=== PATIENT | female | born 1955 | race Caucasian/White ===

== ENCOUNTER 2017-01-21 16:16 | Inpatient (IN) | payer BC ==
[2017-01-14 21:45] LABS: BASOPHILS 0.4 %; BASOPHILS ABSOLUTE 0.03 10/3/uL (0.0-0.16); EOSINOPHILS ABSOLUTE 0.07 10/3/uL (0.0-0.53); IMMATURE GRANULOCYTES 0.7 %; IMMATURE GRANULOCYTES ABSOLUTE 0.05 10/3/uL (0.0-0.11); LYMPHOCYTES 19.5 %; LYMPHOCYTES ABSOLUTE 1.32 10/3/uL (0.67-4.30); MEAN CORPUS HGB CONC 31.5 g/dL (32.0-36.0); MEAN CORPUSCULAR HEMOGLOB 28.9 pg (26.0-34.0); MONOCYTES ABSOLUTE 0.47 10/3/uL (0.21-1.20); NEUTROPHILS 71.4 %; NEUTROPHILS ABSOLUTE 4.82 10/3/uL (2.02-8.40); PLATELET COUNT 255 10/3/uL (150-400); RBC DISTRIBUTION WIDTH 15.4 % (12.0-16.0)
[2017-01-14 21:47] LABS: HEMATOCRIT 43.2 % (36.0-48.0); HEMOGLOBIN 13.6 g/dL (12.0-16.0); MANUAL DIFF NO %; MEAN CORPUSCULAR VOLUME 91.9 fL (80-100); WHITE BLOOD CELLS 6.8 10/3/uL (4.5-10.5)
[2017-01-14 21:53] LABS: INTERNATIONAL NORMAL RATI 1.1 UNITS (-); PROTIME (NOT ORD) 14.4 SEC (12.0-14.5)
[2017-01-14 21:59] LABS: ALKALINE PHOSPHATASE 198 U/L (45-117); BUN (BLOOD UREA NITROGEN) 13 MG/DL (6-23); CHLORIDE, SERUM 101 MMOL/L (96-112); CO2 (CARBON DIOXIDE) 30 MMOL/L (24-34); CREATININE 0.98 MG/DL (0.55-1.02); GFR AFRICAN AMERICAN 72 ML/MIN (>=60); GFR NON AFRICAN AMERICAN 62 ML/MIN (>=60); GLUCOSE, SERUM 173 MG/DL (60-99); SGOT(AST) 44 U/L (5-40); SGPT(ALT) 31 U/L (5-65); SODIUM, SERUM 140 MMOL/L (135-148); TOTAL BILIRUBIN 0.4 MG/DL (0-1.2); TOTAL PROTEIN 7.9 G/DL (6.0-8.5)
[2017-01-14 22:00] LABS: ASCORBIC ACID (UR NOT ORDER) NEG (NEG); BILIRUBIN, URINE NEGATIVE (NEG); KETONE, URINE NEGATIVE (NEG)
[2017-01-14 22:01] LABS: ALBUMIN 3.9 G/DL (3.5-5.0); POTASSIUM, SERUM 5.6 MMOL/L (3.5-5.3)
--- NOTE | ~2017-01-21 | OP ---
Record Of Operation [facility] [address] [place]. [address] NAME: PARIS SINGH : 55 STATUS : ADM IN PAT#: [id number] AGE: 61 ADM/REG DATE : 01/21/17 MR#: [id number] REPORT SERV DATE: 01/26/17 DICTATED BY: MARCOS MCCARTHY DATE: 01/22/17 REPORT STATUS : Draft TRANSCRIBED BY: MODL DATE: 01/22/17 DATE OF PROCEDURE: 01/21/2017 PREOPERATIVE DIAGNOSIS: Left hip status post resection, extensive. POSTOPERATIVE DIAGNOSIS: Left hip status post resection, extensive. PROCEDURE: Left total hip extensive reconstruction/reimplantation. SURGEON: Klaus Mccarthy M.D. APPOINTMENT SCHEDULER: Liliana Ramos. PROCEDURE IN DETAIL: The patient was taken to the operating room and placed supine on the table in normal fashion without incident. General anesthetic was induced per the anesthesiologist. The patient was carefully positioned, padded, prepped, and draped in normal sterile fashion. Sharp dissection was made through a lengthy incision that basically this is the old scar length of her femur from the lateral distal femur all the way up to the trochanter and then angling posteriorly. Electrocautery was used to maintain hemostasis along the way. The IT band was opened and soft tissue dissection was done carefully down to the lateral femur and down into the previous Prostalac component. This was carefully dislocated and the femoral component was removed. The proximal femur was practically fused to the acetabulum. It was then very painstaking to remove heterotopic bone and to break down the fusion area. A drill hole followed by a corkscrew was placed into the polyethylene of the acetabulum and then the cement was freed up from the acetabular fossa. Sequential reamers were used and a multihole cup was placed and impacted, checked to be sure it was sound and snug. Multiple screws were placed in a standard fashion after drilled using self- tapping screw placement. It then took almost an hour to free up all the scar tissue and heterotopic bone around the proximal femur enough that it could be mobilized to permit reconstruction. I carefully palpated distally and also had checked with her previously and her distal fracture had healed with no pain around the distal femur. Once the tedious task of releasing heterotopic bone and arthrofibrotic tissue around the hip was completed, four cables were passed staying directly on the bone around the femur. After doing this careful possible freeing up, the soft tissue scar around the femur passing with a cable passer trying to avoid any neurovascular injury. Sequential reamers were used in the femur up to a 16 and with a 16.5 trial, there was excellent re-creation of her leg length. Therefore, an actual constrained liner was placed and impacted into the acetabular shell. The actual stem was placed and impacted and this was copiously irrigated femur. The cables were tightened, crimped, and cut short. The hip was relocated and a locking ring was placed on the constrained liner. Meticulously hemostasis was obtained. Tranexamic acid was irrigated. The cables were tightened, crimped, and cut short. The wound was closed and dressed sterilely putting multiple strong cords through the trochanter and abductor musculature through the shoulder of prosthesis. The patient had hypertensive episodes during the case, required 3 L of blood transfusion and pressors. Despite the Arnulfo drain reading "2700 mL," all in the surgical team agreed that Record Of Operation [facility] [id number] [place]. [address] NAME: PARIS SINGH : 55 STATUS : ADM IN PAT#: [id number] AGE: 61 ADM/REG DATE : 01/21/17 MR#: [id number] REPORT SERV DATE: 01/26/17 DICTATED BY: MARCOS MCCARTHY DATE: 01/22/17 REPORT STATUS : Draft TRANSCRIBED BY: MODL DATE: 01/22/17 our perceived blood loss was less than a liter. I communicated this with the anesthesiologist to check hemoglobin and replenish the volume as well as using pressors. Anesthesiologist also talked to the men's golf coach as the patient was closed, dressed sterilely, and discharged to the ICU. COMPLICATIONS: None. SPECIMENS AND CULTURES: Benign-appearing blood without any gross purulence. WTB/MODL Klaus Mccarthy M.D. / [id number] CC: Julianne Augustin Bentley, M.D.
--- NOTE | ~2017-01-21 | CN ---
Consultation Report [facility] [address] [place]. [address] NAME: PARIS SINGH : 55 STATUS : ADM IN PAT#: [id number] AGE: 61 ADM/REG DATE : 01/21/17 MR#: [id number] REPORT SERV DATE: 01/22/17 DICTATED BY: JAUN HA DATE: 01/22/17 REPORT STATUS : Draft TRANSCRIBED BY: MODL DATE: 01/22/17 CONSULT DATE OF CONSULTATION: 01/22/2017 REASON FOR CONSULTATION: Postop respiratory failure and shock. HISTORY OF PRESENT ILLNESS: The patient is a 61-year-old white female with past medical history of diabetes and left hip arthroplasty, status post multiple revisions and a history complicated by periprosthetic fracture and septic joint, who presented to the hospital last night for another revision of her left hip arthroplasty. Intraoperatively, the patient had a significant amount of bleeding and had approximately 2700 mL to 3 L of blood loss during the procedure. She required 3 units of packed red blood cells as well as albumin and 2 L of Lactated Ringer's. She was also maintained on a Levophed drip as well as a Merrick-Synephrine drip to maintain an adequate blood pressure. Operative note is still pending at the time of this dictation. This report is per Anesthesia. Postoperatively, she continued to have blood pressure lability and was maintained on Levophed drip, Merrick-Synephrine drip, and a vasopressin drip. She is currently getting another unit of packed red blood cells. She has remained intubated and was transferred to the CCU for further postoperative management, for which we are consulted. PAST MEDICAL HISTORY: 1. History of left hip arthroplasty, status post multiple revisions complicated by chronic left hip infection. 2. Type 2 diabetes. 3. Hypertension. 4. Cirrhosis. 5. Alcohol abuse. 6. Hypothyroidism. 7. Depression. 8. Anxiety. HOME MEDICATIONS: See medication reconciliation form. ALLERGIES: INCLUDE PENICILLIN, SULFA, AND ERYTHROMYCIN. SOCIAL HISTORY: No tobacco or IV drug abuse. She does have a history of alcohol use. Per the chart, her last known usage was approximately 3 vodkas a week. FAMILY HISTORY: Per the chart remarkable for lung disease in her mother as well as hypertension and coronary artery disease, also had a history of smoking and lung cancer in her father. REVIEW OF SYSTEMS: Consultation Report [facility] [address] [place]. [address] NAME: PARIS SINGH : 55 STATUS : ADM IN PAT#: [id number] AGE: 61 ADM/REG DATE : 01/21/17 MR#: [id number] REPORT SERV DATE: 01/22/17 DICTATED BY: JAUN HA DATE: 01/22/17 REPORT STATUS : Draft TRANSCRIBED BY: MODRosina DATE: 01/22/17 Unable to obtain secondary to intubation and sedation. PHYSICAL EXAMINATION: VITAL SIGNS: Temperature 97.8, heart rate 97, respiratory rate 18, blood pressure 83/53. GENERAL: Sedated, intubated. HEENT: Pupils equal, round, and reactive to light. ET tube in place. NECK: Supple. Nontender. No lymphadenopathy. No thyromegaly. No jugular venous distention. LUNGS: Coarse breath sounds bilaterally. CARDIOVASCULAR: Tachycardic. No murmurs, rubs, or gallops. ABDOMEN: Soft, nontender, nondistended. Positive bowel sounds. No hepatosplenomegaly. EXTREMITIES: No cyanosis, clubbing, or edema. NEURO: Sedated. PSYCH: Unable to assess. LABS AND IMAGING: CBC with a white count of 22,000, 78% neutrophils, hemoglobin 10.8, platelets 252. INR 1.9. Metabolic profile remarkable for a BUN of 16, creatinine of 1.2. Normal LFTs. ASSESSMENT AND PLAN: The patient is a 61-year-old white female with a past medical history of left hip arthroplasty with chronic infections, status post multiple revisions as well as diabetes and hypertension, who is now postop day #0, status post revision of left hip arthroplasty complicated by intraoperative bleeding and postoperative hemorrhagic shock and respiratory failure. 1. Postoperative respiratory failure. The patient is on mechanical ventilation. We will continue ventilator management. We will get followup ABG as well as chest x-ray. We will wean her ventilator as tolerated. The patient currently still in a great degree of shock, so will likely remain on the ventilator for the next 24 to 48 hours until her shock improves or resolves. No history of COPD or asthma. We will not place her on bronchodilator protocol at this time. We will provide daily awakening trials to monitor her mental status, currently providing sedation with propofol and we will add fentanyl for pain control if needed. 2. Shock. Currently, the patient is being maintained on Levophed and vasopressin to maintain a MAP greater than 65. We will add back Merrick-Synephrine as needed. Currently monitoring her hemoglobin, it appears to be stabilizing. We will defer management of any postoperative bleeding to the primary surgical team. She does not appear to have infection at this time. We will hold off on any antibiotics for now. We will check a random serum cortisol. 3. Type 2 diabetes. The patient is currently on IV insulin sliding scale. We will add back her Levemir in the next day or two as she stabilizes. 4. We will continue following the patient with you. Please call with questions. I appreciate the consult. 5. Total critical care time spent on this patient was 40 minutes. Consultation Report [address] [place]. [address] NAME: PARIS SINGH : 55 STATUS : ADM IN [facility]#: [id number] AGE: 61 ADM/REG DATE : 01/21/17 MR#: [id number] REPORT SERV DATE: 01/22/17 DICTATED BY: JAUN HA DATE: 01/22/17 REPORT STATUS : Draft TRANSCRIBED BY: MODRosina DATE: 01/22/17 HANSA/MAGGI Jaun Ha MD / [id number] CC: Klaus Underwood M.D.
--- NOTE | ~2017-01-21 | DS ---
Discharge Summary [facility] [address] [place]. [address] NAME: PARIS SINGH : 55 STATUS : DIS IN PAT#: [id number] AGE: 61 ADM/REG DATE : 01/21/17 MR#: [id number] REPORT SERV DATE: 02/05/17 DICTATED BY: MARCOS MCCARTHY DATE: 02/04/17 REPORT STATUS : Draft TRANSCRIBED BY: MAGGI DATE: 02/04/17 Data Collection from hospitalization DISCHARGE DIAGNOSES: 1. Left hip, status post resection - extensive. 2. Diabetes. 3. Hypertension. 4. Cirrhosis. 5. Alcohol abuse. 6. Hypothyroidism. 7. Depression and anxiety. CONSULTATIONS: Refugio Ha MD PROCEDURES PERFORMED: Left total hip extensive reconstruction/reimplantation, 01/21/2017. PATHOLOGY: Bone, soft tissue, and surgical hardware, left hip; arthroplasty - degenerative joint disease; surgical hardware - see gross descriptions. No infection or neoplasm. DISCHARGE MEDICATIONS: Citracal one tablet daily, Maximum D3 one capsule weekly, Colace 100 mg twice a day, ferrous sulfate 300 mg with breakfast and supper, Levemir 40 units subcutaneously at bedtime, levothyroxine 125 mcg daily, Radha 180 mg daily, Mag-Ox 400 mg daily, Theragran tablets one tablet daily, Protonix 40 mg before breakfast, Lyrica 75 mg three times a day, MRSA/MSSA re-screening nasal swab every 14 days as instructed, Coumadin as instructed, Mylanta 30 mL as needed, Dulcolax 15 mg as needed, Humalog injection insulin twice a day as instructed, [place] 7.5/325 one tablet every four hours as needed, milk of magnesia 30 mL as needed, Zofran 4 mg every four hours as needed, MiraLAX powder one packet twice a day as needed, Tenormin 100 mg daily, centrum tablets one tablet daily, and Aldactone 100 mg daily. CONDITION AT DISCHARGE: Stable. DISPOSITION: The patient was discharged to [facility] with diet and activities as instructed. HOSPITAL COURSE: This is a 61-year-old female who has a history of left hip arthroplasty, status post multiple revisions complicated by chronic left hip infection. The patient was going to undergo left total hip extensive reconstruction and reimplantation. She was admitted to the hospital at this time for further evaluation and treatment. Upon admission, she was taken to the operating room where she underwent the above-mentioned procedure. She tolerated this well, and there were no complications. On postop day 1, she was evaluated by Physical Therapy. A new arterial line was going to be placed. Left radial arterial line was placed. The patient was seen by Dr. Refugio Ha regarding postop respiratory failure and shock. Intraoperatively, the patient had a significant amount of bleeding and had approximately 2700 mL to three liters of blood loss during the procedure. She required 3 units of packed red blood cells as well as albumin and two liters of lactated Ringer's. She has been maintained on a Levophed drip as well as Merrick-Synephrine drip to Discharge [address] [place]. [address] NAME: PARIS SINGH : 55 STATUS : DIS IN PAT#: [id number] AGE: 61 ADM/REG DATE : 01/21/17 MR#: [id number] REPORT SERV DATE: 02/05/17 DICTATED BY: MARCOS MCCARTHY DATE: 02/04/17 REPORT STATUS : Draft TRANSCRIBED BY: MAGGI DATE: 02/04/17 maintain adequate blood pressure. Postoperatively, she continued to have blood pressure lability and had been maintained on Levophed drip, Merrick-Synephrine drip, and vasopressin drip. She was currently receiving another unit of packed red blood cells. She remained intubated and had been transferred to the CCU for further postoperative management. White blood cell count was 22,000 with 78% neutrophils. INR level was 1.9. Liver function tests were normal. Ventilator management would be continued. We will get a followup ABG as well as a chest x-ray. The ventilator would be weaned as tolerated. We will provide daily awakening trials to monitor her mental status. She was currently being provided sedation with propofol. We would add fentanyl for pain control as needed. She was currently being maintained on Levophed and vasopressin. We were going to add back Merrick-Synephrine as needed. She did not appear to have an infection at this time. We would hold off on antibiotics for now. Random serum cortisol was going to be checked. IV sliding scale insulin was being given. We would add back Levemir in the next day or 2 if she stabilizes. On the , she was comfortable, we were weaning off pressors, Pepcid was discontinued. Over the next couple of days, she continued to do well. KEE hose remained in place. She was still receiving a Levophed drip. She had been extubated. She was transfused another unit of packed red blood cells. Insulin drip was stopped. She was placed on level 3 sliding scale insulin. She was evaluated by Occupational Therapy. Hemoglobin A1c was 6.4. Postop acute respiratory failure had resolved. On 01/26/2017, she was feeling much better, she was up sitting in a chair. Chest x-ray showed atelectasis and mild volume overload. She was off all vasopressors. Levemir was going to be resumed. Magnesium supplementation was given. We encouraged her to mobilize. The arterial line was going to be removed. The next day, she was doing much better. She was alert and cooperative. Discharge planning was performed. Levemir and level 3 sliding scale insulin continued. She remained on her Zoloft, Neurontin, and Protonix. Occupational and Physical Therapy had evaluated the patient. On 01/28/2017, she was doing very well. She had no focal deficits. She had normal distal pulses. Discharge instructions were given. She received diabetes education. Due to her improved and stable condition, she was discharged to [facility] with the above-stated instructions. Information collected by: Noemi Monk I submit the above information as my discharge summary. TG/MODL Klaus Mccarthy M.D. / [id number] CC: Julianne Augustin M.D. [facility]
[~2017-01-21 16:16] MED LIST: ALLEGRA 180 MG180 MG PO; ALLEGRA180 PO; ASAB PO; ATEN100 PO; ATEN25 PO; ATEN50 PO; C25 PO; CALTRA600D PO; CELEBREX2 PO; CENTRUM PO; CENTRUM TAB1 TAB PO; CITRACAL PO; CLARIT10 PO; DICLOFENAC TOP; DSS PO; ENDOCET1 TAB PO; FESO4 PO; FLEX PO; FOLIC PO; HUMALOG SC; LANTUS SC; LEVAQUIN750 MG PO; LEVEMFLXPN SC; LEVEMIR SC; LEVOTHYROXIN100 MCG PO; LEVOTHYROXIN125 MCG PO; LEVOTHYROXIN50 MCG PO; LEXAPRO10 PO; LEXAPRO20 PO; LYRICA75 PO; MAG-OX PO; MAGNESIUM OTC PO; MAGNESIUM PO; MAGNESIUM TABLET PO; MAGONATE PO; MAXIMUM D3 PO; MULTIVITAMI1 PO; MVI PO; NEUR300 PO; NORCO1 TA1 PO; NORCO1 TAB PO; NOVOLOG SC; PCET PO; PROZ10 PO; SPIRO25 PO; SPIRO50 PO; SYN.025B PO; SYN.05 PO; VANCO1P IV; VANCOMYCIN 1250 MG IV; VICODINTAB PO; VITAMIN B-121000 MC1 SL; VITAMIN B-1500 MG PO; ZOL100 PO; [UNRECOGNIZED DRUG - OTHER] TOP
[2017-01-21 18:01] LABS: BUN (BLOOD UREA NITROGEN) 15 MG/DL (6-23); CALCIUM, SERUM 9.1 MG/DL (8.5-10.4); CHLORIDE, SERUM 102 MMOL/L (96-112); CO2 (CARBON DIOXIDE) 28 MMOL/L (24-34); CREATININE 0.82 MG/DL (0.55-1.02); GFR AFRICAN AMERICAN 90 ML/MIN (>=60); GFR NON AFRICAN AMERICAN 77 ML/MIN (>=60); GLUCOSE, SERUM 154 MG/DL (60-99); SODIUM, SERUM 140 MMOL/L (135-148)
[2017-01-21 18:03] LABS: POTASSIUM, SERUM 4.1 MMOL/L (3.5-5.3)
[2017-01-21 23:57] LABS: BASOPHILS 0.4 %; BASOPHILS ABSOLUTE 0.06 10/3/uL (0.0-0.16); EOSINOPHILS 0.4 %; EOSINOPHILS ABSOLUTE 0.07 10/3/uL (0.0-0.53); IMMATURE GRANULOCYTES 1.9 %; LYMPHOCYTES 17.3 %; LYMPHOCYTES ABSOLUTE 2.76 10/3/uL (0.67-4.30); MEAN CORPUS HGB CONC 31.7 g/dL (32.0-36.0); MEAN CORPUSCULAR HEMOGLOB 27.6 pg (26.0-34.0); MEAN PLATELET VOLUME 10.4 fL (9.2-13.0); MONOCYTES 1.9 %; NEUTROPHILS 78.1 %; PLATELET COUNT 253 10/3/uL (150-400); RBC DISTRIBUTION WIDTH 14.8 % (12.0-16.0)
[2017-01-22 00:02] LABS: HEMATOCRIT 31.2 % (36.0-48.0); HEMOGLOBIN 9.9 g/dL (12.0-16.0); MANUAL DIFF NO %; MEAN CORPUSCULAR VOLUME 86.9 fL (80-100); RED CELL COUNT 3.59 10/6/uL (4.0-5.6)
[2017-01-22 00:03] LABS: INTERNATIONAL NORMAL RATI 1.9 UNITS (-)
[2017-01-22 00:05] LABS: PARTIAL THROMBO TIME 28.3 SEC (22.5-37.2)
[2017-01-22 00:06] LABS: PROTIME (NOT ORD) 21.3 SEC (12.0-14.5)
[2017-01-22 00:09] LABS: BUN (BLOOD UREA NITROGEN) 16 MG/DL (6-23); CALCIUM, SERUM 9.5 MG/DL (8.5-10.4); CHLORIDE, SERUM 106 MMOL/L (96-112); CO2 (CARBON DIOXIDE) 26 MMOL/L (24-34); CREATININE 1.14 MG/DL (0.55-1.02); GFR AFRICAN AMERICAN 60 ML/MIN (>=60); GFR NON AFRICAN AMERICAN 52 ML/MIN (>=60); POTASSIUM, SERUM 4.9 MMOL/L (3.5-5.3); SODIUM, SERUM 145 MMOL/L (135-148)
[2017-01-22 00:12] LABS: GLUCOSE, SERUM 527 MG/DL (60-99)
[2017-01-22 01:48] LABS: BASOPHILS 0.3 %; BASOPHILS ABSOLUTE 0.06 10/3/uL (0.0-0.16); EOSINOPHILS 0.2 %; EOSINOPHILS ABSOLUTE 0.04 10/3/uL (0.0-0.53); HEMATOCRIT 33.6 % (36.0-48.0); HEMOGLOBIN 10.8 g/dL (12.0-16.0); IMMATURE GRANULOCYTES 2.2 %; IMMATURE GRANULOCYTES ABSOLUTE 0.49 10/3/uL (0.0-0.11); LYMPHOCYTES 17.5 %; MEAN CORPUS HGB CONC 32.1 g/dL (32.0-36.0); MEAN CORPUSCULAR HEMOGLOB 28.3 pg (26.0-34.0); MEAN CORPUSCULAR VOLUME 88.2 fL (80-100); MEAN PLATELET VOLUME 10.4 fL (9.2-13.0); MONOCYTES 1.7 %; MONOCYTES ABSOLUTE 0.37 10/3/uL (0.21-1.20); NEUTROPHILS 78.1 %; PLATELET COUNT 252 10/3/uL (150-400); RBC DISTRIBUTION WIDTH 14.8 % (12.0-16.0); RED CELL COUNT 3.81 10/6/uL (4.0-5.6); WHITE BLOOD CELLS 22.3 10/3/uL (4.5-10.5)
[2017-01-22 01:53] LABS: MANUAL DIFF NO %
[2017-01-22 02:02] LABS: INTERNATIONAL NORMAL RATI 1.9 UNITS (-); PARTIAL THROMBO TIME 29.7 SEC (22.5-37.2); PROTIME (NOT ORD) 21.3 SEC (12.0-14.5)
[2017-01-22 02:06] LABS: BUN (BLOOD UREA NITROGEN) 16 MG/DL (6-23); CALCIUM, SERUM 9.2 MG/DL (8.5-10.4); CHLORIDE, SERUM 109 MMOL/L (96-112); CREATININE 1.23 MG/DL (0.55-1.02); GFR AFRICAN AMERICAN 55 ML/MIN (>=60); GFR NON AFRICAN AMERICAN 47 ML/MIN (>=60); SGOT(AST) 43 U/L (5-40); SGPT(ALT) 28 U/L (5-65); SODIUM, SERUM 144 MMOL/L (135-148)
[2017-01-22 02:10] LABS: A/G RATIO 1.8 (0.7-1.9); ALBUMIN 3.1 G/DL (3.5-5.0); ALKALINE PHOSPHATASE 90 U/L (45-117); CO2 (CARBON DIOXIDE) 19 MMOL/L (24-34); GLOBULIN 1.7 G/DL (2.5-4.1); GLUCOSE, SERUM 436 MG/DL (60-99); PHOSPHORUS, SERUM 7.9 MG/DL (2.5-4.5); POTASSIUM, SERUM 3.8 MMOL/L (3.5-5.3); TOTAL BILIRUBIN 0.9 MG/DL (0-1.2); TOTAL PROTEIN 4.8 G/DL (6.0-8.5)
[2017-01-22 03:54] LABS: BE (BASE EXCESS) -13.2 MEQ/L (0 +/- 2.5); CARBOXYHEMOGLOBIN 0.3 % (0-3); HCO3 (ACTUAL BICARBONATE) 14.5 MEQ/L (23-27); HEMOBLOGIN CONTENT 11.9 G/DL (12-16); INSTRUMENT SERIAL # 35151; METHEMOGLOBIN 0.5 % (0-3); MODE CMV; O2 CONTENT 17.8 VOL% (18-24); OPERATOR ID 13861; PCO2 (CO2 TENSION) 41 MMHG (35-45); PO2 (O2 TENSION) 467 MMHG (79-93); SAMPLE Arterial; TIDAL VOLUME 600 ML; pH 7.17 (7.37-7.43)
[2017-01-22 04:10] LABS: BE (BASE EXCESS) -6.2 MEQ/L (0 +/- 2.5); CARBOXYHEMOGLOBIN 0.3 % (0-3); HCO3 (ACTUAL BICARBONATE) 20.3 MEQ/L (23-27); HEMOBLOGIN CONTENT 10.8 G/DL (12-16); INSTRUMENT SERIAL # 35151; METHEMOGLOBIN 0.6 % (0-3); MODE CMV; O2 CONTENT 15.2 VOL% (18-24); OPERATOR ID 13861; PCO2 (CO2 TENSION) 44 MMHG (35-45); PO2 (O2 TENSION) 175 MMHG (79-93); SAMPLE Arterial; TIDAL VOLUME 600 ML; pH 7.28 (7.37-7.43)
[2017-01-22 04:33] LABS: CK-MB 1.5 NG/ML; CPK 122 U/L (0-200); TROPONIN I 0.03 NG/ML (<0.05)
[2017-01-22 06:13] LABS: PROCALCITONIN 0.38 ng/mL (<0.5)
[2017-01-22 14:30] LABS: HEMATOCRIT 23.7 % (36.0-48.0); HEMOGLOBIN 8.2 g/dL (12.0-16.0)
[2017-01-22 17:53] LABS: ALKALINE PHOSPHATASE 83 U/L (45-117); CHLORIDE, SERUM 102 MMOL/L (96-112); POTASSIUM, SERUM 3.9 MMOL/L (3.5-5.3); SGOT(AST) 174 U/L (5-40); SGPT(ALT) 95 U/L (5-65); SODIUM, SERUM 143 MMOL/L (135-148); TOTAL PROTEIN 5.4 G/DL (6.0-8.5)
[2017-01-22 17:54] LABS: BUN (BLOOD UREA NITROGEN) 21 MG/DL (6-23); CO2 (CARBON DIOXIDE) 24 MMOL/L (24-34)
[2017-01-22 17:55] LABS: A/G RATIO 1.3 (0.7-1.9); CREATININE 1.73 MG/DL (0.55-1.02); GFR AFRICAN AMERICAN 36 ML/MIN (>=60); GFR NON AFRICAN AMERICAN 31 ML/MIN (>=60); GLOBULIN 2.4 G/DL (2.5-4.1); GLUCOSE, SERUM 253 MG/DL (60-99); TOTAL BILIRUBIN 0.2 MG/DL (0-1.2)
[2017-01-23 02:48] LABS: HEMATOCRIT 25.4 % (36.0-48.0); HEMOGLOBIN 8.7 g/dL (12.0-16.0)
[2017-01-23 03:30] LABS: BASOPHILS 0.2 %; BASOPHILS ABSOLUTE 0.03 10/3/uL (0.0-0.16); EOSINOPHILS 0 %; HEMATOCRIT 23.9 % (36.0-48.0); HEMOGLOBIN 8.3 g/dL (12.0-16.0); IMMATURE GRANULOCYTES 0.5 %; IMMATURE GRANULOCYTES ABSOLUTE 0.08 10/3/uL (0.0-0.11); LYMPHOCYTES 11.2 %; LYMPHOCYTES ABSOLUTE 1.63 10/3/uL (0.67-4.30); MEAN CORPUSCULAR HEMOGLOB 28.5 pg (26.0-34.0); MEAN PLATELET VOLUME 9.9 fL (9.2-13.0); MONOCYTES 8.7 %; MONOCYTES ABSOLUTE 1.27 10/3/uL (0.21-1.20); NEUTROPHILS 79.4 %; NEUTROPHILS ABSOLUTE 11.54 10/3/uL (2.02-8.40); RBC DISTRIBUTION WIDTH 15.4 % (12.0-16.0); WHITE BLOOD CELLS 14.6 10/3/uL (4.5-10.5)
[2017-01-23 03:33] LABS: BE (BASE EXCESS) 2.1 MEQ/L (0 +/- 2.5); CARBOXYHEMOGLOBIN 0.3 % (0-3); HCO3 (ACTUAL BICARBONATE) 27.2 MEQ/L (23-27); HEMOBLOGIN CONTENT 8.9 G/DL (12-16); INSTRUMENT SERIAL # 35151; METHEMOGLOBIN 0.9 % (0-3); MODE CMV; O2 CONTENT 12.3 VOL% (18-24); OPERATOR ID 23712; PCO2 (CO2 TENSION) 45 MMHG (35-45); PO2 (O2 TENSION) 118 MMHG (79-93); SAMPLE Arterial; TIDAL VOLUME 500 ML
[2017-01-23 03:33] LABS: RED CELL COUNT 2.91 10/6/uL (4.0-5.6)
[2017-01-23 03:34] LABS: MANUAL DIFF NO %; MEAN CORPUS HGB CONC 34.7 g/dL (32.0-36.0); MEAN CORPUSCULAR VOLUME 82.1 fL (80-100); PLATELET COUNT 101 10/3/uL (150-400)
[2017-01-23 03:37] LABS: INTERNATIONAL NORMAL RATI 1.3 UNITS (-)
[2017-01-23 03:38] LABS: PROTIME (NOT ORD) 16.3 SEC (12.0-14.5)
[2017-01-23 03:45] LABS: ALBUMIN 2.9 G/DL (3.5-5.0); BUN (BLOOD UREA NITROGEN) 20 MG/DL (6-23); CALCIUM, SERUM 7.9 MG/DL (8.5-10.4); CHLORIDE, SERUM 100 MMOL/L (96-112); CREATININE 1.35 MG/DL (0.55-1.02); GFR AFRICAN AMERICAN 49 ML/MIN (>=60); GFR NON AFRICAN AMERICAN 42 ML/MIN (>=60); SODIUM, SERUM 141 MMOL/L (135-148)
[2017-01-23 03:49] LABS: CO2 (CARBON DIOXIDE) 30 MMOL/L (24-34); GLUCOSE, SERUM 198 MG/DL (60-99); POTASSIUM, SERUM 3.4 MMOL/L (3.5-5.3)
[2017-01-23 03:50] LABS: PHOSPHORUS, SERUM 3.8 MG/DL (2.5-4.5)
[2017-01-23 09:51] LABS: HEMOGLOBIN 7.8 g/dL (12.0-16.0)
[2017-01-24 04:40] LABS: BASOPHILS 0.2 %; BASOPHILS ABSOLUTE 0.02 10/3/uL (0.0-0.16); EOSINOPHILS 0.4 %; EOSINOPHILS ABSOLUTE 0.04 10/3/uL (0.0-0.53); HEMATOCRIT 22.4 % (36.0-48.0); HEMOGLOBIN 7.4 g/dL (12.0-16.0); IMMATURE GRANULOCYTES 0.9 %; IMMATURE GRANULOCYTES ABSOLUTE 0.09 10/3/uL (0.0-0.11); LYMPHOCYTES 14.8 %; LYMPHOCYTES ABSOLUTE 1.51 10/3/uL (0.67-4.30); MEAN CORPUSCULAR HEMOGLOB 28.2 pg (26.0-34.0); MEAN PLATELET VOLUME 10.2 fL (9.2-13.0); MONOCYTES 7.2 %; MONOCYTES ABSOLUTE 0.73 10/3/uL (0.21-1.20); NEUTROPHILS 76.5 %; NEUTROPHILS ABSOLUTE 7.79 10/3/uL (2.02-8.40); PLATELET COUNT 83 10/3/uL (150-400); RBC DISTRIBUTION WIDTH 15.8 % (12.0-16.0); RED CELL COUNT 2.62 10/6/uL (4.0-5.6); WHITE BLOOD CELLS 10.2 10/3/uL (4.5-10.5)
[2017-01-24 04:41] LABS: MANUAL DIFF NO %; MEAN CORPUSCULAR VOLUME 85.5 fL (80-100)
[2017-01-24 04:44] LABS: INTERNATIONAL NORMAL RATI 1.7 UNITS (-)
[2017-01-24 05:01] LABS: ALBUMIN 2.5 G/DL (3.5-5.0); ALKALINE PHOSPHATASE 88 U/L (45-117); BUN (BLOOD UREA NITROGEN) 17 MG/DL (6-23); CALCIUM, SERUM 8.3 MG/DL (8.5-10.4); CHLORIDE, SERUM 106 MMOL/L (96-112); CO2 (CARBON DIOXIDE) 29 MMOL/L (24-34); CREATININE 1.07 MG/DL (0.55-1.02); GFR AFRICAN AMERICAN 65 ML/MIN (>=60); GFR NON AFRICAN AMERICAN 56 ML/MIN (>=60); GLOBULIN 2.5 G/DL (2.5-4.1); GLUCOSE, SERUM 112 MG/DL (60-99); PHOSPHORUS, SERUM 2.4 MG/DL (2.5-4.5); POTASSIUM, SERUM 3.8 MMOL/L (3.5-5.3); SGOT(AST) 127 U/L (5-40); SGPT(ALT) 63 U/L (5-65); SODIUM, SERUM 144 MMOL/L (135-148); TOTAL BILIRUBIN 0.7 MG/DL (0-1.2)
[2017-01-25 04:00] LABS: BASOPHILS 0.6 %; BASOPHILS ABSOLUTE 0.05 10/3/uL (0.0-0.16); EOSINOPHILS 0.9 %; EOSINOPHILS ABSOLUTE 0.08 10/3/uL (0.0-0.53); HEMOGLOBIN 8.6 g/dL (12.0-16.0); IMMATURE GRANULOCYTES ABSOLUTE 0.17 10/3/uL (0.0-0.11); LYMPHOCYTES 16.8 %; LYMPHOCYTES ABSOLUTE 1.42 10/3/uL (0.67-4.30); MEAN CORPUS HGB CONC 33.6 g/dL (32.0-36.0); MEAN CORPUSCULAR HEMOGLOB 30.2 pg (26.0-34.0); MEAN PLATELET VOLUME 10.6 fL (9.2-13.0); MONOCYTES 7.6 %; MONOCYTES ABSOLUTE 0.64 10/3/uL (0.21-1.20); NEUTROPHILS 72.1 %; NEUTROPHILS ABSOLUTE 6.08 10/3/uL (2.02-8.40); PLATELET COUNT 94 10/3/uL (150-400); RBC DISTRIBUTION WIDTH 15.6 % (12.0-16.0); RED CELL COUNT 2.85 10/6/uL (4.0-5.6); WHITE BLOOD CELLS 8.4 10/3/uL (4.5-10.5)
[2017-01-25 04:01] LABS: HEMATOCRIT 25.6 % (36.0-48.0); MANUAL DIFF NO %; MEAN CORPUSCULAR VOLUME 89.8 fL (80-100)
[2017-01-25 04:07] LABS: INTERNATIONAL NORMAL RATI 2.2 UNITS (-)
[2017-01-25 04:10] LABS: PROTIME (NOT ORD) 24.2 SEC (12.0-14.5)
[2017-01-25 04:11] LABS: BUN (BLOOD UREA NITROGEN) 14 MG/DL (6-23); CALCIUM, SERUM 8.6 MG/DL (8.5-10.4); CHLORIDE, SERUM 102 MMOL/L (96-112); CO2 (CARBON DIOXIDE) 29 MMOL/L (24-34); CREATININE 0.87 MG/DL (0.55-1.02); GFR AFRICAN AMERICAN 83 ML/MIN (>=60); GFR NON AFRICAN AMERICAN 72 ML/MIN (>=60); SODIUM, SERUM 138 MMOL/L (135-148)
[2017-01-25 04:13] LABS: GLUCOSE, SERUM 247 MG/DL (60-99); POTASSIUM, SERUM 4.6 MMOL/L (3.5-5.3)
[2017-01-26 03:33] LABS: HEMATOCRIT 26.2 % (36.0-48.0); HEMOGLOBIN 8.7 g/dL (12.0-16.0); MEAN CORPUS HGB CONC 33.2 g/dL (32.0-36.0); MEAN CORPUSCULAR VOLUME 90.3 fL (80-100); MEAN PLATELET VOLUME 10.8 fL (9.2-13.0); PLATELET COUNT 111 10/3/uL (150-400); RBC DISTRIBUTION WIDTH 15.6 % (12.0-16.0)
[2017-01-26 03:38] LABS: MANUAL DIFF YES %
[2017-01-26 03:46] LABS: BUN (BLOOD UREA NITROGEN) 12 MG/DL (6-23); CHLORIDE, SERUM 103 MMOL/L (96-112); CO2 (CARBON DIOXIDE) 28 MMOL/L (24-34); CREATININE 0.84 MG/DL (0.55-1.02); GFR AFRICAN AMERICAN 87 ML/MIN (>=60); GFR NON AFRICAN AMERICAN 75 ML/MIN (>=60); GLUCOSE, SERUM 223 MG/DL (60-99); PHOSPHORUS, SERUM 2.9 MG/DL (2.5-4.5); POTASSIUM, SERUM 4.2 MMOL/L (3.5-5.3); SODIUM, SERUM 140 MMOL/L (135-148)
[2017-01-26 04:13] LABS: BAND NEUTROPHILS 4 %; EOSINOPHILS 1 %; EOSINOPHILS ABSOLUTE (CALC) 0.07 10/3/uL (0.0-0.53); IMMATURE GRANS ABSOLUTE (CALC) 0.35 10/3/uL (0.0-0.11); LYMPHOCYTES 14 %; LYMPHOCYTES ABSOLUTE (CALC) 0.98 10/3/uL (0.67-4.30); METAMYELOCYTES 4 %; MONOCYTES 5 %; MONOCYTES ABSOLUTE (CALC) 0.35 10/3/uL (0.21-1.20); MYELOCYTES 1 %; NEUTROPHILS ABSOLUTE (CALC) 5.25 10/3/uL (2.02-8.40); PLATELET ESTIMATE SLT DEC (ADEQUATE); SEGMENTED NEUTROPHIL (0) 71 %; TOTAL NUCLEATED CELLS 100
[2017-01-26 04:14] LABS: GIANT PLATELET RARE; POLYCHROMASIA 1+ (2-5/OIF) (0-1/OIF)
[2017-01-26 04:22] LABS: INTERNATIONAL NORMAL RATI 2.3 UNITS (-); PROTIME (NOT ORD) 25.4 SEC (12.0-14.5)
[2017-01-27 05:20] LABS: HEMATOCRIT 27.4 % (36.0-48.0); HEMOGLOBIN 9.1 g/dL (12.0-16.0); MEAN CORPUS HGB CONC 33.2 g/dL (32.0-36.0); MEAN CORPUSCULAR HEMOGLOB 29.8 pg (26.0-34.0); MEAN CORPUSCULAR VOLUME 89.8 fL (80-100); MEAN PLATELET VOLUME 11.4 fL (9.2-13.0); RBC DISTRIBUTION WIDTH 16.1 % (12.0-16.0); RED CELL COUNT 3.05 10/6/uL (4.0-5.6); WHITE BLOOD CELLS 8.6 10/3/uL (4.5-10.5)
[2017-01-27 05:22] LABS: PLATELET COUNT 167 10/3/uL (150-400)
[2017-01-27 05:23] LABS: MANUAL DIFF YES %
[2017-01-27 05:28] LABS: PROTIME (NOT ORD) 22.4 SEC (12.0-14.5)
[2017-01-27 05:49] LABS: BAND NEUTROPHILS 5 %; IMMATURE GRANS ABSOLUTE (CALC) 0.52 10/3/uL (0.0-0.11); LYMPHOCYTES 14 %; METAMYELOCYTES 2 %; MONOCYTES 6 %; MONOCYTES ABSOLUTE (CALC) 0.52 10/3/uL (0.21-1.20); MYELOCYTES 4 %; NEUTROPHILS ABSOLUTE (CALC) 6.36 10/3/uL (2.02-8.40); SEGMENTED NEUTROPHIL (0) 69 %; TOTAL NUCLEATED CELLS 100
[2017-01-27 05:50] LABS: PLATELET ESTIMATE ADQ (ADEQUATE); RBC MORPHOLOGY NORM (NORMAL)
[2017-01-27 05:57] LABS: ALBUMIN 2.7 G/DL (3.5-5.0); BUN (BLOOD UREA NITROGEN) 9 MG/DL (6-23); CALCIUM, SERUM 8.9 MG/DL (8.5-10.4); CHLORIDE, SERUM 102 MMOL/L (96-112); CO2 (CARBON DIOXIDE) 30 MMOL/L (24-34); CREATININE 0.85 MG/DL (0.55-1.02); GFR AFRICAN AMERICAN 86 ML/MIN (>=60); GFR NON AFRICAN AMERICAN 74 ML/MIN (>=60); GLUCOSE, SERUM 213 MG/DL (60-99); PHOSPHORUS, SERUM 3.6 MG/DL (2.5-4.5); POTASSIUM, SERUM 4.1 MMOL/L (3.5-5.3); SODIUM, SERUM 141 MMOL/L (135-148)
[2017-01-28 04:25] LABS: INTERNATIONAL NORMAL RATI 1.7 UNITS (-); PROTIME (NOT ORD) 20.2 SEC (12.0-14.5)
[2017-01-28 04:26] LABS: HEMATOCRIT 27.4 % (36.0-48.0); MEAN CORPUS HGB CONC 32.8 g/dL (32.0-36.0); MEAN CORPUSCULAR HEMOGLOB 29.3 pg (26.0-34.0); MEAN CORPUSCULAR VOLUME 89.3 fL (80-100); PLATELET COUNT 189 10/3/uL (150-400); RBC DISTRIBUTION WIDTH 16.4 % (12.0-16.0); RED CELL COUNT 3.07 10/6/uL (4.0-5.6); WHITE BLOOD CELLS 9.1 10/3/uL (4.5-10.5)
[2017-01-28 04:29] LABS: MANUAL DIFF YES %
[2017-01-28 04:35] LABS: CALCIUM, SERUM 8.4 MG/DL (8.5-10.4); CHLORIDE, SERUM 102 MMOL/L (96-112); CO2 (CARBON DIOXIDE) 29 MMOL/L (24-34); CREATININE 0.97 MG/DL (0.55-1.02); GFR AFRICAN AMERICAN 73 ML/MIN (>=60); GFR NON AFRICAN AMERICAN 63 ML/MIN (>=60); GLUCOSE, SERUM 221 MG/DL (60-99); POTASSIUM, SERUM 3.5 MMOL/L (3.5-5.3); SODIUM, SERUM 141 MMOL/L (135-148)
[2017-01-28 04:37] LABS: BUN (BLOOD UREA NITROGEN) 15 MG/DL (6-23)
[2017-01-28 04:56] LABS: BAND NEUTROPHILS 13 %; BASOPHILS 1 %; BASOPHILS ABSOLUTE (CALC) 0.09 10/3/uL (0.0-0.16); EOSINOPHILS 2 %; EOSINOPHILS ABSOLUTE (CALC) 0.18 10/3/uL (0.0-0.53); IMMATURE GRANS ABSOLUTE (CALC) 0.36 10/3/uL (0.0-0.11); LYMPHOCYTES 9 %; LYMPHOCYTES ABSOLUTE (CALC) 0.82 10/3/uL (0.67-4.30); METAMYELOCYTES 4 %; MONOCYTES 6 %; MONOCYTES ABSOLUTE (CALC) 0.55 10/3/uL (0.21-1.20); NUCLEATED RED BLOOD CELLS 1 /100WBC (0); PLATELET ESTIMATE ADQ (ADEQUATE); POIKILOCYTOSIS 1+ (5-10/OIF) (0-5/OIF); SEGMENTED NEUTROPHIL (0) 65 %; STOMATOCYTES 1+ (3-10/OIF) (0-2/OIF); TOTAL NUCLEATED CELLS 100
[2017-07-15] MEDS ORDERED: IRON PO (14:02)
[2017-07-15] MEDS ORDERED: MULTIPLE VIT PO (14:02)
[2017-07-15] MEDS ORDERED: MOBIC15 MG PO (14:10)
== END 2017-01-28 15:25 | DRG 469 ==
LOC: SDC/OF 16:16 → CCU 01-22 00:27 → 3SO 01-26 20:39
PROVIDERS: Internal Medicine; Internal Medicine Critical Care Medicine; Specialist
PROC: 30233N1 Transfusion of Nonautologous Red Blood Cells into Peripheral Vein, Percutaneous Approach (ICD-10-PCS; 2017-01-21)
PROC: 0SRB02Z Replacement of Left Hip Joint with Metal on Polyethylene Synthetic Substitute, Open Approach (ICD-10-PCS; principal; 2017-01-21 18:15)
DX: Z47.32 Aftercare following explantation of hip joint prosthesis (principal); J95.821 Acute postprocedural respiratory failure; D62 Acute posthemorrhagic anemia; E83.42 Hypomagnesemia; G62.9 Polyneuropathy, unspecified; T81.19XA Other postprocedural shock, initial encounter; E11.9 Type 2 diabetes mellitus without complications; E03.9 Hypothyroidism, unspecified; F32.9 Major depressive disorder, single episode, unspecified
CPT/HCPCS: 31720; 36415; 71010; 72170; 73552-LT; 74000; 80048; 80053; 80069; 81001; 82330; 82533; 82550; 82553; 82803; 82805; 82947; 82962; 83036; 83605; 83735; 84100; 84132; 84145; 84295; 84484; 85014; 85018; 85025; 85610; 85730; 86850; 86900; 86901; 86920; 87015; 87070; 87075; 87102; 87116; 87205; 87641; 88300; 88304; 88311; 90686; 93005; 94002; 94003; 94640; 94770; 97110-GP; 97116-GP; 97162-GP; 97164-GP; 97165-GO; 97530-GP; A9270-GY; C1713; C1776; C9113; G0008; J0690; J1170; J1885; J2274; J2370; J2405; J2795; J3010; J3260; J3370; J3411; P9016; P9045; P9059